=== PATIENT | female | born 1990 | race Caucasian/White ===

== ENCOUNTER 2016-09-30 06:38 | Emergency (ER) | payer BC, MEDICAID ==
[2016-09-30 06:49] VITALS: BP 107/67; PULSE 64; RESP 16; TEMP 98.2; O2SAT 98
--- NOTE | 2016-09-30 07:07 | EDPHY ---
H & P Stated Complaint: c/o R shoulder pain after falling doing yoga yesterday Time Seen by Provider: 09/30/16 06:54 HPI/ROS: CHIEF COMPLAINT: Right shoulder pain HISTORY OF PRESENT ILLNESS: Patient is a 26-year-old female who fell while doing yoga last night. She was doing a hand stand on her boyfriend's back. He shifted and she fell. She was able to catch herself to some degree with her hand with her arm above her head but had immediate pain to her shoulder. She thinks that she may have torn her subscapularis muscle. 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 She denies other injuries. She denies impact to her head or neck. REVIEW OF SYSTEMS: Constitutional: denies: chills, fever, recent illness, recent injury EENTM: denies: blurred vision, double vision, nose congestion Respiratory: denies: cough, shortness of breath Cardiac: denies: chest pain, irregular heart rate, lightheadedness, palpitations Gastrointestinal/Abdominal: denies: abdominal pain, diarrhea, nausea, vomiting, blood streaked stools Genitourinary: denies: dysuria, frequency, hematuria, pain Musculoskeletal: See HPI Skin: denies: lesions, rash, jaundice, bruising Neurological: denies: headache, numbness, paresthesia, tingling, dizziness, weakness Hematologic/Lymphatic: denies: blood clots, easy bleeding, easy bruising Immunologic/allergic: denies: HIV/AIDS, transplant EXAM: GENERAL: Well-appearing, well-nourished and in no acute distress. HEAD: Atraumatic, normocephalic. EYES: Pupils equal round and reactive to light, extraocular movements intact, sclera anicteric, conjunctiva are normal. ENT: TMs normal, nares patent, oropharynx clear without exudates. Moist mucous membranes. NECK: Normal range of motion, supple without lymphadenopathy or JVD. LUNGS: Breath sounds clear to auscultation bilaterally and equal. No wheezes rales or rhonchi. HEART: Regular rate and rhythm without murmurs, rubs or gallops. ABDOMEN: Soft, nontender, normoactive bowel sounds. No guarding, no rebound. No masses appreciated. BACK: No CVA tenderness, no spinal tenderness, step-offs or deformities EXTREMITIES: The patient has pain with rotation of her shoulder. moderate to mild pain with elevation above 90 degrees anteriorly or laterally. No bony tenderness or step-offs. No elbow pain NEUROLOGICAL: Cranial nerves II through XII grossly intact. Normal speech, normal gait. 5/5 strength, normal movement in all extremities, normal sensation PSYCH: Normal mood, normal affect. SKIN: Warm, dry, normal turgor, no visible rashes or lesions. Source: Patient Exam Limitations: No limitations - Medical/Surgical History Hx Asthma: No Hx Chronic Respiratory Disease: No Hx Diabetes: No Hx Cardiac Disease: No Hx Renal Disease: No Hx Cirrhosis: No Hx Alcoholism: No Hx HIV/AIDS: No Hx Splenectomy or Spleen Trauma: No Other PMH: PMHx: anxiety. PSHx: jaw surgery, 03/23/15 - Social History Smoking Status: Former smoker Alcohol Use: None Drug Use: None Constitutional: Initial Vital Signs Temperature (C) 36.8 C 09/30/16 06:41 Heart Rate 64 09/30/16 06:41 Respiratory Rate 16 09/30/16 06:41 Blood Pressure 107/67 09/30/16 06:41 O2 Sat (%) 98 09/30/16 06:41 O2 Delivery Mode Room Air Allergies/Adverse Reactions: cefaclor [From [facility] [place]] Allergy (Verified 09/30/16 06:44) Home Medications: Medication Instructions Recorded clonazePAM [Klonopin (*)] 0.5 mg PO BID #30 tab 12/29/15 GABAPENTIN 09/30/16 Medical Decision Making Procedures: Procedure: Splint placement. A sling was applied. After application of the splint I returned and re- examined the patient. The splint was adequately immobilizing the joint and distal to the splint the patient's circulation and sensation was intact. ED Course/Re-evaluation: Patient's exam and history are consistent with rotator cuff injury. We discussed sling and rest and anti-inflammatories. She is not improving in 1 week I recommended she see an orthopedist and have an MRI done. She understands and agrees with this plan. She declines further workup or testing at this time. Differential Diagnosis: Partial list of the Differential diagnosis considered include but were not limited to; rotator cuff injury, AC separation, clavicle fracture and although unlikely based on the history and physical exam, I also considered head injury, neck injury. I discussed these differential diagnoses and the plan with the patient as well as the usual and expected course. The patient understands that the diagnosis is provisional and that in medicine we are not always correct and that further workup is often warranted. Usual and customary warnings were given. All of the patient's questions were answered. The patient was instructed to return to the emergency department should the symptoms at all worsen or return, otherwise to followup with the physician as we discussed. Departure - Departure Disposition: Home, Routine, Self-Care Clinical Impression: Rotator cuff injury Qualifiers: Encounter type: initial encounter Laterality: right Qualified Code(s): S46.001A - Unspecified injury of muscle(s) and tendon(s) of the rotator cuff of right shoulder, initial encounter Condition: Fair Instructions: Rotator Cuff Injury (ED) Additional Instructions: Take anti-inflammatories as discussed and follow up with Orthopedics in 1 week. Referrals: [facility] [Other] - As per Instructions Joaquim Grijalva MD [Medical Doctor] - As per Instructions Laura Ahn MD [Medical Doctor] - As per Instructions
== END 2016-09-30 07:13 | disposition home or self-care (01) ==
DX: S46.001A Unspecified injury of muscle(s) and tendon(s) of the rotator cuff of right shoulder, initial encounter (principal); Z87.891 Personal history of nicotine dependence; W18.39XA Other fall on same level, initial encounter; Y93.42 Activity, yoga
CPT/HCPCS: A4565